=== PATIENT | male | born 1965 | race Caucasian/White ===

== ENCOUNTER 2022-06-10 18:14 | Emergency (ER) | payer OTHER, SELFPAY ==
[2022-06-10] VITALS (21 sets, daily range): BP systolic 108–150; BP diastolic 68–86; PULSE 79–92; RESP 11–25; TEMP 36.1; O2SAT 89–100
--- NOTE | 2022-06-10 18:30 | CRLHL7_ITS ---
For Patients: As a result of the Century Cures Act, medical imaging exams and procedure reports are released immediately into your electronic medical record. You may view this report before your referring provider. If you have questions, please contact your health care provider. Indication: Trauma. Technique: Pelvis 1 view. Comparison: None. Findings: Bones: No acute fracture or aggressive osseous lesion. Alignment is normal. Joint spaces: Mild degenerative changes of the bilateral hips. 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 Soft tissues: Hernia repair clips about the left hemipelvis. Impression: No evidence of an acute bony abnormality. Degenerative changes of the bilateral hips. Dictated by Geoff Collins MD @ 06/10/2022 7:17:51 PM (Electronically Signed)
--- NOTE | 2022-06-10 18:31 | CRLHL7_ITS ---
For Patients: As a result of the Cures Act, medical imaging exams and procedure reports are released immediately into your electronic medical record. You may view this report before your referring provider. If you have questions, please contact your health care provider. INDICATION: Trauma, fall. TECHNIQUE: CT cervical spine without contrast. COMPARISON: None. FINDINGS: Vertebrae: Alignment is normal. There are no fractures or suspicious bony lesions. Discs and facet joints: Mild cervical spine degenerative changes, most prominent at C6-C7. Extraspinal findings: Paravertebral soft tissues are unremarkable. IMPRESSION: No sign of acute injury. Please note that all CT scans at this facility use dose modulation, iterative reconstruction, and/or weight-based dosing when appropriate to reduce radiation dose to as low as reasonably achievable. Dictated by Duke Daugherty MD @ 06/10/2022 8:01:55 PM (Electronically Signed)
--- NOTE | 2022-06-10 18:31 | CRLHL7_ITS ---
For Patients: As a result of the Century Cures Act, medical imaging exams and procedure reports are released immediately into your electronic medical record. You may view this report before your referring provider. If you have questions, please contact your health care provider. INDICATION: Trauma. TECHNIQUE: CT chest, abdomen and pelvis acquired with 98 cc Isovue 370 IV contrast. COMPARISON: None. FINDINGS: CHEST: Lungs and pleura: Mild dependent and bibasilar atelectasis. Trace right hemopneumothorax. Cardiovascular structures: Heart size is normal. Thoracic aorta and main pulmonary artery are normal in caliber. Mediastinum and long: No mass or adenopathy. Chest wall and axilla: No mass or adenopathy. Bilateral gynecomastia. Bones: Lateral right 3rd through 8th rib fractures. Posterior right 5th through 9th rib fractures. ABDOMEN AND PELVIS: Liver: Hepatic steatosis. Subcentimeter hypodense foci are too small to accurately characterize. No sign of acute injury. Gallbladder and bile ducts: Unremarkable. Pancreas: Unremarkable. Spleen: Unremarkable. No sign of acute injury. Adrenal glands: Unremarkable. Kidneys: Unremarkable. GI tract: Unremarkable. Vascular structures: Scattered atherosclerotic calcifications. Lymph nodes: Unremarkable. Miscellaneous: Fat containing right inguinal hernia. No free air or significant free fluid. Pelvic Organs: Unremarkable. Bones: No acute fracture or dislocation. IMPRESSION: 1. Trace right hemopneumothorax. 2. Acute lateral right 3rd through 8th rib and posterior right 5th through 9th rib fractures. 3. No acute traumatic abnormality of the abdomen or pelvis. 4. Hepatic steatosis. Please note that all CT scans at this facility use dose modulation, iterative reconstruction, and/or weight-based dosing when appropriate to reduce radiation dose to as low as reasonably achievable. Dictated by Duke Daugherty MD @ 06/10/2022 8:13:33 PM (Electronically Signed)
--- NOTE | 2022-06-10 18:32 | CRLHL7_ITS ---
For Patients: As a result of the Cures Act, medical imaging exams and procedure reports are released immediately into your electronic medical record. You may view this report before your referring provider. If you have questions, please contact your health care provider. INDICATION: Shortness of breath. TECHNIQUE: Chest 1 views. COMPARISON: None. FINDINGS: Cardiovascular and mediastinum: Unremarkable. Lungs and pleural spaces: Low lung volumes with bronchovascular crowding. No focal consolidation. No pleural effusion or pneumothorax. Bones and soft tissues: Probable mildly displaced right 7th and 8th lateral rib fractures. IMPRESSION: Probable mildly displaced right 7th and 8th lateral rib fractures. Recommend correlation with site for focal tenderness. No pneumothorax. Low lung volumes with bronchovascular crowding. No focal consolidation. Dictated by Geoff Collins MD @ 06/10/2022 7:14:43 PM (Electronically Signed)
--- NOTE | 2022-06-10 18:34 | ED.GENADULT ---
HPI - General Adult General Chief complaint: Fall/Minor Trauma Stated complaint: Fell off ladder 10 ft, injured right side/shoulder Time Seen by Provider: 06/10/22 18:18 History of Present Illness HPI narrative: Patient is a 56-year-old male who says he was about 10 ft up on a ladder cutting a branch. At the branch snapped back and knocked him off. He fell off the ladder, landing on his right side. He denies hitting his head, did not have any loss of consciousness. He denies neck or back pain. He says he landed on his right side, he complains of pain in his right side primarily in the ribs. He also has some pain in his right pelvis, particularly with ambulation. He says he is breathing shallowly because it hurts to breathe but does not have specific shortness of breath. He denies any low back pain or abdominal pain. His drove him here. He denies any significant medical history does not take any medications, specifically any blood thinners. Has an allergy to penicillin. Does not smoke or drink. Related Data Home Medications Medication Instructions Recorded Confirmed No Known Home Medications 06/10/22 06/10/22 Allergies Allergy/AdvReac Type Severity Reaction Status Date / Time Penicillins Allergy Unknown Verified 06/10/22 18:37 Review of Systems Status of ROS: Reports: 10 or more systems reviewed and unremarkable except as noted in History and below [facility] Social History Smoking Status: Never smoker Do you use any of these nicotine containing products: None Second hand tobacco smoke exposure: No How often do you have a drink containing alcohol: 2-4 times a month How many standard drinks containing alcohol do you have on a typical day: 1 or 2 How often do you have six or more drinks on one occasion: Never AUDIT-C Alcohol total score: 2 Non-prescribed substance use: denies use service: No Exam Narrative: Exam Narrative: Primary survey: Airway: Patent. Breathing: Nonlabored. Lungs clear, breath sounds equal bilaterally. Circulation: Pulses intact. No external bleeding. Disability: GCS 15. Secondary survey: Vital signs reviewed In general, an alert, nontoxic male, limb slightly but is able to bear weight. Head: Normocephalic, atraumatic. Eyes: Pupils are equal reactive. Extraocular movements full. ENT: No facial trauma. Dentition intact. Neck: No midline cervical tenderness. No anterior neck trauma. Chest: No visible signs of chest trauma. Some tenderness on the right side of the chest without there deformity, no crepitus or subQ air. Heart regular rate and rhythm. Lungs clear bilaterally. Abdomen: No visible signs of trauma. Soft, nondistended, nontender to palpation. Back: No visible signs of trauma. Nontender to palpation. Pelvis: Stable, nontender. Extremities: Nontender to palpation, no visible swelling or deformity. Abrasion on the right elbow. No bony tenderness, free range of motion. Neurologic: Alert, conversant, moves all extremities to command. Skin: Warm and dry, no abrasions or lacerations. Const: Vital Signs, click to edit/add: Vital Signs - 24 hr 06/10/22 18:24 06/10/22 20:10 06/10/22 20:00 Temperature 96.9 F L Pulse Rate [Pulse Oximeter] 88 89 86 Respiratory Rate 18 17 13 Blood Pressure [Le ft Upper Arm] 137/77 108/71 113/74 Pulse Oximetry 100 94 94 Oxygen Delivery Ia thod Room Air Room Air Room Air 06/10/22 19:50 06/10/22 19:40 06/10/22 19:30 Temperature Pulse Rate [Pulse Oximeter] 84 83 86 Respiratory Rate 20 20 11 L Blood Pressure [Le ft Upper Arm] 110/74 125/74 123/76 Pulse Oximetry 94 94 94 Oxygen Delivery Ia thod Room Air Room Air Room Air 06/10/22 19:22 06/10/22 18:50 06/10/22 18:47 Temperature Pulse Rate [Pulse Oximeter] 86 86 79 Respiratory Rate 12 Blood Pressure [Le ft Upper Arm] 124/80 150/75 H Pulse Oximetry 93 94 92 Oxygen Delivery Ia thod Room Air Room Air Room Air 06/10/22 18:40 06/10/22 18:23 06/10/22 21:45 Temperature Pulse Rate [Pulse Oximeter] 83 Respiratory Rate Blood Pressure [Le ft Upper Arm] 126/83 137/77 Pulse Oximetry 95 89 Oxygen Delivery Ia thod Room Air Room Air 06/10/22 20:20 06/10/22 20:30 06/10/22 20:40 Temperature Pulse Rate [Pulse Oximeter] 90 89 85 Respiratory Rate 17 20 15 Blood Pressure [Le ft Upper Arm] 109/71 112/71 109/68 Pulse Oximetry 93 92 91 Oxygen Delivery Me thod Room Air Room Air Room Air 06/10/22 20:50 06/10/22 21:00 06/10/22 21:10 Temperature Pulse Rate [Pulse Oximeter] 87 92 89 Respiratory Rate 16 17 12 Blood Pressure [Le ft Upper Arm] 115/69 123/70 127/76 Pulse Oximetry 94 92 93 Oxygen Delivery Me thod Room Air Room Air Room Air 06/10/22 21:30 06/10/22 22:00 06/10/22 22:30 Temperature Pulse Rate [Pulse Oximeter] 85 81 87 Respiratory Rate 23 25 H 20 Blood Pressure [Le ft Upper Arm] 123/77 121/79 127/86 Pulse Oximetry 90 97 97 Oxygen Delivery Me thod Room Air Room Air Room Air Course Course Hospital Course: Patient was transfer the cart, changed into a gown. I did a fast exam, he had sliding lung signs bilaterally, no evidence of fluid in the splenorenal, Morison's use or in the pelvis. No evidence of pericardial effusion. Vital signs were normal. An IV was placed and he was given 4 mg of morphine for pain. Portable chest x-ray and portable pelvis film were ordered. I also ordered CTs of the cervical spine given mechanism, despite the fact that he does not have any complaints of neck pain or posterior cervical tenderness. I also ordered CT scans of the chest, abdomen and pelvis. Patient's labs are notable for white blood cell count of 15.6, suspect demargination in the absence of anything to suggest an infectious process. His hemoglobin is normal at 16.7. Platelets are 215. INR is normal, electrolytes are normal, BUN and creatinine are normal. Blood sugars 134. LFT show mild elevations in AST and ALT at 91 and 100. Alk-phos and bilirubin are normal. Portable chest x-ray by my review showed at least 3 rib fractures on the right, I did not see evidence of pneumothorax. X-ray of the pelvis looked normal to me. He did develops more pain, did not want to have any more morphine because he says in the past it has made him loosen eat. I do not want to give him Toradol, so I did give him 0.5 mg of Dilaudid which helped with pain. CT of the cervical spine was read by Radiology as negative. I reviewed the CT of his abdomen and pelvis. I did not see any abnormalities in the abdomen, I did see multiple rib fractures on the chest CT. Final radiology read is as follows: 1. Trace right hemopneumothorax. 2. Acute lateral right 3rd through 8th rib and posterior right 5th through 9th rib fractures. 3. No acute traumatic abnormality of the abdomen or pelvis. 4. Hepatic steatosis. After getting his CT results, I went to discuss these with him, I recommended transfer to a trauma facility. Initially, he was resistant to this idea, and said that he really did not want to go to a larger hospital. He wanted to wait and talk with his , who was at that time not in the emergency department. Therefore there was some delay in further conversation about transfer. He did remain hemodynamically stable. He had an EKG which showed some nonspecific T-wave changes, will add on a troponin just to be thorough although he is not having any central chest pain and did not have anterior chest trauma. After further discussion with the patient and his , he did ultimately agree to transfer to a trauma center. I am currently waiting on authorization to transfer to [facility]; they have had is information for about 20 minutes and I am waiting for a call back to find out whether not they have availability at their facility as of 9:50 p.m.. Ultimately received acceptance from [facility] at around 10:10 p.m.. Transport was called and patient was transferred to their facility. Vital Signs Vital signs: Initial Vital Signs Blood Pressure 137/77 06/10/22 18:23 Blood Pressure Mean 97 06/10/22 18:23 Blood Pressure Position Supine 06/10/22 18:23 Vital Signs Blood Pressure 137/77 06/10/22 18:23 Temperature 96.9 F L 06/10/22 18:24 Pulse Rate 87 06/10/22 22:30 Respiratory Rate 20 06/10/22 22:30 Blood Pressure 127/86 06/10/22 22:30 Pulse Oximetry 97 06/10/22 22:30 Oxygen Delivery Method 06/10/22 22:30 Medical Decision Making Lab Data Labs: Lab Results 06/10/22 06/10/22 06/10/22 Range/Units 18:30 18:30 18:30 WBC 15.63 H (4.50-11.00) K/uL RBC 5.59 (4.30-5.90) m/uL Hgb 16.7 (13.5-17.5) gm/dL Hct 48.4 (37.0-53.0) % MCV 87 (80-100) fL MCH 30 (26-34) pg MCHC 35 (32-36) gm/dL RDW Coeff of Pippa 12.7 (11.5-15.5) % Plt Count 215 (140-440) K/uL Neut % (Auto) 75.9 H (42.0-72.0) % Lymph % (Auto) 17.5 L (20-44) % Benton % (Auto) 5.2 (0.0-11.0) % Eos % (Auto) 0.6 (0.0-7.0) % Baso % (Auto) 0.1 (0.0-3.0) % Neut # (Auto) 11.90 H (1.7-7.0) K/uL Lymph # (Auto) 2.70 (0.90-2.90) K/uL Benton # (Auto) 0.80 (0.00-0.90) K/UL Eos # (Auto) 0.10 (0.00-0.50) K/uL Baso # (Auto) 0.00 (0.00-0.30) K/uL Abs Immat Gran (auto) 0.11 (0.00-0.30) K/uL Imm/Tot Granulo (auto) Not Reportable INR 1.04 (0.91-1.10) APTT 31 (23-33) Seconds Sodium 144 (135-149) mmol/L Potassium 3.6 (3.6-5.1) mmol/L Chloride 104 (96-114) mmol/L Carbon Dioxide 26 (20-32) mmol/L BUN 21 (7-30) mg/dL Creatinine 1.1 (0.5-1.5) mg/dL Estimated GFR 78 ml/min Glucose 134 H (60-115) mg/dL Calcium 9.4 (8.4-10.6) mg/dL Total Bilirubin 0.8 (0.1-1.5) mg/dL Direct Bilirubin 0.2 (0.0-0.5) mg/dL AST 91 H (12-35) U/L ALT 100 H (4-50) U/L Alkaline Phosphatase 67 (40-150) U/L Troponin I (0.01-0.04) ng/mL Total Protein 8.1 (6.0-8.3) g/dL Albumin 5.1 H (3.3-5.0) g/dL Urine Color (Yellow) Urine Appearance (Clear) Urine pH (5.0-8.5) Ur Specific Kiefer (1.000-1.030) Urine Protein (Negative) Urine Glucose (UA) (Negative) Urine Ketones (Negative) Urine Blood (Negative) Urine Nitrite (Negative) Urine Bilirubin (Negative) Urine Urobilinogen (0.2-1.0) Ur Leukocyte Esterase (Negative) Urine RBC (0-2) Urine WBC (0-5) Ur Squamous Epith Cells (None-Few) Urine Bacteria (None) SARS-CoV-2 (PCR) (Negative) 06/10/22 06/10/22 06/10/22 Range/Units 21:42 22:02 22:10 WBC (4.50-11.00) K/uL RBC (4.30-5.90) m/uL Hgb (13.5-17.5) gm/dL Hct (37.0-53.0) % MCV (80-100) fL MCH (26-34) pg MCHC (32-36) gm/dL RDW Coeff of Pippa (11.5-15.5) % Plt Count (140-440) K/uL Neut % (Auto) (42.0-72.0) % Lymph % (Auto) (20-44) % Benton % (Auto) (0.0-11.0) % Eos % (Auto) (0.0-7.0) % Baso % (Auto) (0.0-3.0) % Neut # (Auto) (1.7-7.0) K/uL Lymph # (Auto) (0.90-2.90) K/uL Benton # (Auto) (0.00-0.90) K/UL Eos # (Auto) (0.00-0.50) K/uL Baso # (Auto) (0.00-0.30) K/uL Abs Immat Gran (auto) (0.00-0.30) K/uL Imm/Tot Granulo (auto) INR (0.91-1.10) APTT (23-33) Seconds Sodium (135-149) mmol/L Potassium (3.6-5.1) mmol/L Chloride (96-114) mmol/L Carbon Dioxide (20-32) mmol/L BUN (7-30) mg/dL Creatinine (0.5-1.5) mg/dL Estimated GFR ml/min Glucose (60-115) mg/dL Calcium (8.4-10.6) mg/dL Total Bilirubin (0.1-1.5) mg/dL Direct Bilirubin (0.0-0.5) mg/dL AST (12-35) U/L ALT (4-50) U/L Alkaline Phosphatase (40-150) U/L Troponin I < 0.01 L (0.01-0.04) ng/mL Total Protein (6.0-8.3) g/dL Albumin (3.3-5.0) g/dL Urine Color Yellow (Yellow) Urine Appearance Clear (Clear) Urine pH 5.5 (5.0-8.5) Ur Specific Kiefer 1.025 (1.000-1.030) Urine Protein 2+ A (Negative) Urine Glucose (UA) Negative (Negative) Urine Ketones 2+ A (Negative) Urine Blood 2+ A (Negative) Urine Nitrite Negative (Negative) Urine Bilirubin Negative (Negative) Urine Urobilinogen 0.2 (0.2-1.0) Ur Leukocyte Esterase Negative (Negative) Urine RBC 0-2 (0-2) Urine WBC 0-2 (0-5) Ur Squamous Epith Cells None (None-Few) Urine Bacteria Few A (None) SARS-CoV-2 (PCR) Negative SARS-CoV-2 (Negative) Discharge Plan Discharge Clinical Impression: Multiple rib fractures, Hemopneumothorax on right Patient Disposition: [facility] Condition: Stable Prescriptions: No Action No Known Home Medications Stand Alone Forms: MyHealth Info Instructions
[2022-06-10 18:45] LABS: Basophils Percent Auto 0.1 % (0.0-3.0); Eosinophils Percent Auto 0.6 % (0.0-7.0); Hematocrit 48.4 % (37.0-53.0); Hemoglobin* 16.7 gm/dL (13.5-17.5); Immature Granulocytes Abs Auto 0.11 K/uL (0.00-0.30); Lymphocytes Percent Auto 17.5 % (20-44); Mean Corpuscular HGB Conc 35 gm/dL (32-36); Mean Corpuscular Hemoglobin 30 pg (26-34); Mean Corpuscular Volume 87 fL (80-100); Monocytes Percent Auto 5.2 % (0.0-11.0); Neutrophils Percent Auto 75.9 % (42.0-72.0); Platelet Count* 215 K/uL (140-440); RDW Coefficient of Variation % 12.7 % (11.5-15.5); Red Blood Count 5.59 m/uL (4.30-5.90); White Blood Count* 15.63 K/uL (4.50-11.00)
[2022-06-10 18:47] LABS: Slide Review Reflex No
[2022-06-10] MEDS: 0.9 % SODIUM CHLORIDE 1000 ml 1,000 ML IV (18:51)
[2022-06-10 18:52] LABS: Chloride* 104 mmol/L (96-114)
[2022-06-10 18:53] LABS: Albumin* 5.1 g/dL (3.3-5.0); Potassium* 3.6 mmol/L (3.6-5.1); Sodium* 144 mmol/L (135-149)
[2022-06-10] MEDS: MORPHINE 4 MG/ML INJ IVP (18:54)
[2022-06-10 18:55] LABS: Creatinine* 1.1 mg/dL (0.5-1.5); Estimated Glomerular Filt Rate 78 ml/min; INR 1.04 (0.91-1.10); Prothrombin Time 14.2 Seconds
[2022-06-10 18:56] LABS: Alanine Aminotransferase* 100 U/L (4-50); Alkaline Phosphatase* 67 U/L (40-150); Aspartate Amino Transferase* 91 U/L (12-35); Bilirubin Direct* 0.2 mg/dL (0.0-0.5); Bilirubin Total* 0.8 mg/dL (0.1-1.5); Blood Urea Nitrogen* 21 mg/dL (7-30); Calcium* 9.4 mg/dL (8.4-10.6); Carbon Dioxide* 26 mmol/L (20-32); Glucose* 134 mg/dL (60-115); Partial Thromboplastin Time* 31 Seconds (23-33); Total Protein* 8.1 g/dL (6.0-8.3)
--- NOTE | 2022-06-10 19:24 | ED.NURSE ---
is back from ct . at bs. 02 sats 93 % on ra. less shaking. ivf infusing. pain is 8/10.
[2022-06-10] MEDS: HYDROmorphone 0.5 mg/0.5 ml inj IVP ×2 (20:09→22:45)
--- NOTE | 2022-06-10 21:32 | ED.NURSE ---
was told that he is in need of a trauma center. needs to be transferred for observation and pain control. is in agreement. did place 02 at 2 l due to sats ~89-90%. sats increased to 97% at 2 l.
--- NOTE | 2022-06-10 22:11 | ED.NURSE ---
wanted to urinate. did assist to the side of the bed, urinal was provided. has much pain with movement. [facility] did call back and is speaking to dr russell. blood drawn for trop.
[2022-06-10 22:25] LABS: Appearance Urine Clear (Clear); Bilirubin Urine Negative (Negative); Blood Urine 2+ (Negative); Color Urine Yellow (Yellow); Glucose Urine Negative (Negative); Ketones Urine 2+ (Negative); Leukocyte Esterase Urine Negative (Negative); Nitrite Urine Negative (Negative); Protein Urine 2+ (Negative); Specific Gravity Urine 1.025 (1.000-1.030); Urobilinogen Urine 0.2 (0.2-1.0); pH Urine 5.5 (5.0-8.5)
[2022-06-10 22:30] LABS: Bacteria Urine Few; RBC Urine 0-2 (0-2); WBC Urine 0-2 (0-5)
[2022-06-10 22:36] LABS: Troponin I* < 0.01 ng/mL (0.01-0.04)
[2022-06-10 22:38] LABS: SARS PCR* Negative SARS-CoV-2 (Negative)
== END 2022-06-10 22:00 | disposition home or self-care (01) ==
PROVIDERS: Emergency Provider Emergency Medicine; PCP Family Medicine
DX: S22.41XA Multiple fractures of ribs, right side, initial encounter for closed fracture (principal); J94.2 Hemothorax; W11.XXXA Fall on and from ladder, initial encounter
CPT/HCPCS: 36415; 71045; 71260; 72125; 72170; 74177; 80048; 80076; 81001; 84484; 85025; 85610; 85730; 87086; 87635; 93005; 96374; 96375; 96376; 99284; 99285; 99291; J1170; J2270; J7030; Q9967

== ENCOUNTER 2022-06-10 22:41 | Outpatient (CLI) | payer OTHER, SELFPAY | END 2022-06-10 22:42 | disposition home or self-care (01) | LOC: AMB 07-02 10:02 | PROVIDERS: PCP Family Medicine; Visit Provider Emergency Medicine | DX: S22.41XS Multiple fractures of ribs, right side, sequela (principal); K76.0 Fatty (change of) liver, not elsewhere classified | CPT/HCPCS: A0425; A0426 ==

== ENCOUNTER 2023-02-09 08:28 | Outpatient (CLI) | payer OTHER, SELFPAY | END 2023-02-09 08:29 | disposition home or self-care (01) | LOC: NFLDREF 13:20 | PROVIDERS: PCP Family Medicine; Referring Provider Family Medicine; Visit Provider Family Medicine | DX: Z13.6 Encounter for screening for cardiovascular disorders (principal); Z13.1 Encounter for screening for diabetes mellitus | CPT/HCPCS: 80061; 82947 ==

== ENCOUNTER 2023-03-31 07:44 | Day surgery (SDC) | payer OTHER, SELFPAY ==
[2023-03-31] VITALS (9 sets, daily range): BP systolic 120–147; BP diastolic 71–83; PULSE 44–68; RESP 12–121; TEMP 36.2–36.5; O2SAT 94–97; BMI 28.7
[2023-03-31] MEDS: LACTATED RINGERS 1000 ML 1,000 ML 100 ML IV (08:15)
--- NOTE | 2023-03-31 08:29 | W.ANESCHARGE ---
Anesthesia Charges Start Date/Time Anesthesia Start Date: 03/31/23 Anesthesia Start Time: 08:48 Stop Date/Time Anesthesia Stop Date: 03/31/23 Anesthesia Stop Time: 10:05
--- NOTE | 2023-03-31 08:40 | PM.GSPRC ---
Operative Note Pre-op diagnosis: 1. Symptomatic right inguinal hernia. 2. s/p laparoscopic left inguinal hernia repair. Post-op diagnosis: 1. Indirect right inguinal hernia. Type of Procedure: 1. Open right inguinal hernia repair with mesh. Indications: 57-year-old male s/p laparoscopic left inguinal hernia repair was seen in clinic for evaluation of a small right inguinal hernia. Patient recently fell 15 ft and broke his ribs and had a liver laceration. When he was recovering he started to notice pain in the right lower quadrant. He was initially thought to have this pain due to his recent injury however but a month ago he noticed a bulge in the right groin. He was suspicious of this being hernia. He was able to reduce this bulge. He heard air fung when reducing the bulge. Patient describes episodes of dull and aching bulge pain lasting for several hours. on clinical exam with the patient standing up and doing Valsalva there was a small inguinal hernia palpated on the right. This was reducible. There is no recurrence palpated on the left. Given patient's symptoms and his clinical exam, an open right inguinal hernia repair was recommended. The procedure was discussed in detail. The risks associated procedure including infection, bleeding, hernia recurrence, and nerve pain and nerve injury were all discussed with the patient, and he agreed to proceed. Procedure Description: After discussing the risks and benefits of the procedure, the patient signed informed consent.? The operative site was marked and the patient was brought to the operating room and placed on the operating table in supine position.? Care was taken to pad the patient's pressure points.?? The patient was then intubated by anesthesia.?? The operative site was then prepped and draped in the usual sterile fashion.? A time-out was then performed. Surgical site was prepped and draped in sterile fashion. Site of the incision was marked with a marking pen and local anesthetic was injected. An oblique incision was made just above and medial to the right inguinal ligament. Subcutaneous tissue was dissected to external obliques. Superficial subcutaneous vascular branches were clamped, divided and tied with 3-0 Vicryl ties. Small incision was made through the external oblique aponeurosis with scalpel. I then used Metzenbaum scissors to dissect under external obliques and extend my incision. Mosquito clamps were placed on the edges of external oblique exposing the inguinal floor. The right Ilioinguinal nerve was identified and was going through the plain of dissection. The nerve was divided proximally and distally and a 3 cm segment of it was excised. This was not sent to pathology. I then identified the spermatic cord and the hernia sac. I bluntly dissected subcutaneous tissues in order to place [place] drain around the cord structures. Cremasteric fibers were peeled off and dissected off the hernia sac and cord structures. This was a small indirect hernia. The hernia sac was from the spermatic cord bluntly and with cautery. The indirect hernia sac was incised and examined from the inside. No intraabdominal organs were incarcerated in the hernia sac. A stitch using 3-0 Vicryl was placed near the base of the hernia sac through the sac and the hernia sac tied off. Hernia sac was then excised and not sent to pathology. This was then pushed into preperitoneal space through the internal ring. Surgical field was examined for bleeding and hemostasis was achieved with cautery and Vicryl ties. A small Bard mesh plug was inserted through the internal ring and secured to the adjacent tissues with interrupted 0-0 Neurolon sutures. A Bard mesh onlay was also used for hernia repair. The mesh onlay was sutured in place with interrupted 0-0 Neurolon sutures to the conjoint tendon medially and shelving edge laterally, pubic tubercle inferiorly. Simple interrupted sutures were placed using 0-0 Neurolon at the base of internal inguinal ring making it only large enough to fit a tip of one finger through. Spermatic cord was placed back into scrotum. [place] drain was removed. External oblique aponeurosis was closed with a running 3-0 Vicryl. Additional local anesthetic was injected into subcutaneous tissues. Taco's fascia and subcutaneous tissue was re-approximated with interrupted Vicryl stitches. Skin incision was closed with 4-0 Monocryl subcuticular stitch. Steri strips and sterile dressing were applied over incision. All counts were correct at the end of the case. Patient tolerated this procedure well and was transferred to PACU in stable condition. Findings: small indirect hernia sac. Implants: Bard mesh plug and mesh onlay. Anesthesia: GETA Surgeon: eHena Singletary MD Estimated blood loss (mL): 5 Condition: stable Disposition: PACU
[2023-03-31] MEDS: CEFAZOLIN 2 GM INJ IVP (09:00)
[2023-03-31] MEDS: BUPIVACAINE 0.25% 30 ML INJECTION (09:30)
--- NOTE | 2023-03-31 10:05 | W.ANESCHARGE ---
Anesthesia Charges Start Date/Time Anesthesia Start Date: 03/31/23 Anesthesia Start Time: 08:48 Stop Date/Time Anesthesia Stop Date: 03/31/23 Anesthesia Stop Time: 10:05
[2023-03-31] MEDS: LACTATED RINGERS 1000 ML 1,000 ML 35 ML IV (10:10)
== END 2023-03-31 11:12 | disposition home or self-care (01) ==
PROVIDERS: PCP Family Medicine; Visit Provider Surgery
PROC: (CPT 49505; principal; 2023-03-31 09:00)
DX: K40.90 Unilateral inguinal hernia, without obstruction or gangrene, not specified as recurrent (principal)
CPT/HCPCS: 49505; 830; 840; C1781; J0330; J0665; J0690; J1100; J2250; J2405; J2704; J2710; J3010; J7120